=== PATIENT | male | born 1985 | race Caucasian/White ===

== ENCOUNTER 2017-05-01 11:10 | Emergency (ER) | payer BC, OTHER ==
[~2017-05-01] VITALS: Ht 180.3 cm; Wt 99.8 kg
--- OUTSIDE RECORDS SUMMARY | 2017-05-01 11:15 | XMS REPORT | Continuity of Care Document ---
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 Visit Date/Time Discharge Status Pt. Type Provider Facility Loc./Unit Complaint [id number] 08/02/2012 16:23:00 08/02/2012 23: 59:59 CLS Outpatient KIT FRANCOIS MD
--- NOTE | 2017-05-01 11:40 | ED Psychosocial ---
General Chief Complaint: Psych/Social Disorder Stated Complaint: SOB/CP Source: patient Exam Limitations: no limitations History of Present Illness Time seen by provider: 11:37 Initial Comments To ER with chest pain and shortness of breath. Patient is from [facility] [place] and was working up in [place]. 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 On his way home he developed sudden onset of dizziness, shortness of breath, chest pain and states he nearly "blacked out". He states he feels rather anxious at this time. He is tearful. Timing/Duration: constant Severity: moderate Associated Symptoms: anxiety Allergies and Home Medications Allergies Coded Allergies: No Known Drug Allergies (Unverified , 05/01/17) Home Medications Dextroamphetamine/Amphetamine 20 Mg Tablet, 30 MG PO daily early, (Reported) Duloxetine HCl 30 Mg Capsule.dr, 30 MG PO DAILY, (Reported) Constitutional: see HPI EENTM: see HPI Respiratory: no symptoms reported Cardiovascular: no symptoms reported Genitourinary: no symptoms reported Musculoskeletal: no symptoms reported Skin: no symptoms reported Psychiatric/Neurological: See HPI, Anxiety Other He does take Cymbalta for depression. Past Ukjekkp-Hlvfvl-Uqprng Hx Patient Social History Recent Foreign Travel: No Contact w/Someone Who Travel: No Physical Exam Vital Signs Vital Sign - Last 12Hours 05/01/17 11:44 Temp 98.7 Pulse 99 Resp 26 B/P (MAP) 174/130 Pulse Ox 100 O2 Delivery Room Air Capillary Refill : General Appearance: WD/WN, no apparent distress, other (tearful,) HEENT: PERRL/EOMI, normal ENT inspection Neck: non-tender, full range of motion Respiratory: no respiratory distress, no accessory muscle use Cardiovascular: regular rate, rhythm Gastrointestinal: normal bowel sounds, non tender, soft Neurologic/Psychiatric: alert, normal mood/affect, oriented x 3 Appearance/Memory: appropriate appearance, appropriate insight Behavior/Eye Contact: cooperative, good eye contact Thoughts/Hallucinations: normal thought pattern Skin: normal color, warm/dry Comments Tearful but states "I think I'm finally starting to regain my composure". Progress/Results/Core Measures Results/Orders Lab Results Laboratory Tests Test 05/01/17 11:52 Range/Units White Blood Count 8.9 4.3-11.0 10^3/uL Red Blood Count 5.22 4.35-5.85 10^6/uL Hemoglobin 15.4 13.3-17.7 G/DL Hematocrit 44 40-54 % Mean Corpuscular Volume 84 80-99 FL Mean Corpuscular Hemoglobin 30 25-34 PG Mean Corpuscular Hemoglobin Concent 35 32-36 G/DL Red Cell Distribution Width 11.9 10.0-14.5 % Platelet Count 257 130-400 10^3/uL Mean Platelet Volume 9.0 7.4-10.4 FL Neutrophils (%) (Auto) 64 42-75 % Lymphocytes (%) (Auto) 26 12-44 % Monocytes (%) (Auto) 9 0-12 % Eosinophils (%) (Auto) 1 0-10 % Basophils (%) (Auto) 1 0-10 % Neutrophils # (Auto) 5.7 1.8-7.8 X 10^3 Lymphocytes # (Auto) 2.3 1.0-4.0 X 10^3 Monocytes # (Auto) 0.8 0.0-1.0 X 10^3 Eosinophils # (Auto) 0.1 0.0-0.3 10^3/uL Basophils # (Auto) 0.0 0.0-0.1 10^3/uL D-Dimer < 0.27 0.00-0.49 UG/ML Sodium Level 138 135-145 MMOL/L Potassium Level 3.9 3.6-5.0 MMOL/L Chloride Level 103 98-107 MMOL/L Carbon Dioxide Level 26 21-32 MMOL/L Anion Gap 9 5-14 MMOL/L Blood Urea Nitrogen 12 7-18 MG/DL Creatinine 1.13 0.60-1.30 MG/DL Estimat Glomerular Filtration Rate > 60 BUN/Creatinine Ratio 11 Glucose Level 105 70-105 MG/DL Calcium Level 10.1 8.5-10.1 MG/DL Total Bilirubin 0.4 0.1-1.0 MG/DL Aspartate Amino Transf (AST/SGOT) 29 5-34 U/L Alanine Aminotransferase (ALT/SGPT) 28 0-55 U/L Alkaline Phosphatase 76 40-136 U/L Troponin I < 0.30 <0.30 NG/ML Total Protein 7.5 6.4-8.2 GM/DL Albumin 4.4 3.2-4.5 GM/DL My Orders Orders - TOMMY RODRÍGUEZ APRN Alprazolam Tablet (Xanax Tablet) (05/01/17 11:45) Cbc With Automated Diff (05/01/17 11:34) Comprehensive Metabolic Panel (05/01/17 11:34) Fibrin Degradation Products (05/01/17 11:34) Ekg Tracing (05/01/17 11:34) Troponin I (05/01/17 11:34) Chest Pa/Lat (2 View) (05/01/17 11:34) Vital Signs/I&O Vital Sign - Last 12Hours 05/01/17 11:44 Temp 98.7 Pulse 99 Resp 26 B/P (MAP) 174/130 Pulse Ox 100 O2 Delivery Room Air Departure Communication (Admissions) Progress Notes 1229- patient is much more relaxed and states that he feels better at this time. Impression Impression: Primary Impression: Panic attack Disposition: 01 HOME, SELF-CARE Condition: Stable Departure-Patient Inst. Decision time for Depature: 12:29 Referrals: NO,LOCAL PHYSICIAN (PCP/Family) Primary Care Physician Patient Instructions: Panic Disorder (DC) Add. Discharge Instructions: 1. Return to ER for any concerns 2. Follow-up with your doctor this week for recheck 3. All discharge instructions reviewed with patient and/or family. Voiced understanding. TOMMY RODRÍGUEZ APRN May 01, 2017 11:39
[2017-05-01] MEDS ORDERED: ALPRAZolam 0.5 MG (XANAX) TAB PO SCH (11:45)
[2017-05-01] MEDS ORDERED: AMPH20TA2 PO (11:51)
[2017-05-01] MEDS ORDERED: DULO30CA3 PO (11:52)
[2017-05-01 12:01] LABS: BASOPHILS % (AUTO) 1 % (0-10); EOSINOPHILS # (AUTO) 0.1 10^3/uL (0.0-0.3); EOSINOPHILS % (AUTO) 1 % (0-10); LYMPHOCYTES # (AUTO) 2.3 X 10^3 (1.0-4.0); LYMPHOCYTES % (AUTO) 26 % (12-44); MEAN CORPUSCULAR HEMOGLOBIN 30 PG (25-34); MEAN CORPUSCULAR HGB CONC 35 G/DL (32-36); MEAN CORPUSCULAR VOLUME 84 FL (80-99); MONOCYTES # (AUTO) 0.8 X 10^3 (0.0-1.0); MONOCYTES % (AUTO) 9 % (0-12); NEUTROPHILS # (AUTO) 5.7 X 10^3 (1.8-7.8); NEUTROPHILS % (AUTO) 64 % (42-75); PLATELET COUNT 257 10^3/uL (130-400); RED BLOOD COUNT 5.22 10^6/uL (4.35-5.85); RED CELL DISTRIBUTION WIDTH 11.9 % (10.0-14.5); WHITE BLOOD COUNT 8.9 10^3/uL (4.3-11.0)
--- NOTE | 2017-05-01 12:14 | Diagnostic Imaging Report ---
INDICATION: Chest tightness. FINDINGS: Lungs demonstrate no evidence of focal pulmonary infiltrate or consolidation. There is no effusion. There is no pneumothorax. There does however appear to be some slight prominence of the central bronchial flanagan. Underlying airways disease and bronchitis would be a consideration. Alternatively, correlate for any known history of asthma. The heart size appears normal. There is no evidence of failure. There is no acute osseous abnormality. IMPRESSION: 1. There is some central bronchial wall thickening which may relate to history of asthma or possibly to an underlying bronchitis. There is no focal alveolar pneumonia demonstrated. Dictated by: Dictated on workstation # [id number]
[2017-05-01 12:17] LABS: ALANINE AMINOTRANSFERASE 28 U/L (0-55); ALBUMIN 4.4 GM/DL (3.2-4.5); ANION GAP 9 MMOL/L (5-14); ASPARTATE AMINO TRANSFERASE 29 U/L (5-34); BILIRUBIN,TOTAL 0.4 MG/DL (0.1-1.0); BLOOD UREA NITROGEN 12 MG/DL (7-18); BUN/CREATININE RATIO 11; CALCIUM 10.1 MG/DL (8.5-10.1); CARBON DIOXIDE 26 MMOL/L (21-32); CHLORIDE 103 MMOL/L (98-107); CREATININE SERUM 1.13 MG/DL (0.60-1.30); GFR ESTIMATED > 60; GLUCOSE 105 MG/DL (70-105); POTASSIUM 3.9 MMOL/L (3.6-5.0); SODIUM 138 MMOL/L (135-145); TOTAL PROTEIN 7.5 GM/DL (6.4-8.2)
[2017-05-01 12:23] LABS: TROPONIN I < 0.30 NG/ML (<0.30)
[2017-05-01 12:47] VITALS: BP 140/93
== END 2017-05-01 12:47 | disposition home or self-care (01) ==
LOC: ER 11:12
DX: F41.0 Panic disorder [episodic paroxysmal anxiety] (principal)
CPT/HCPCS: 36415; 71020; 80053; 84484; 85025; 85379; 93005